=== PATIENT | male | born 1990 | race African-American/Black ===

== ENCOUNTER 2018-03-30 08:41 | Emergency (ER) | payer SELFPAY ==
[~2018-03-30] VITALS: Ht 180.3 cm; Wt 79.5 kg
[2018-03-30 08:45] VITALS: Ht 180.3 cm; Wt 79.5 kg
[2018-03-30 09:56] VITALS: BP 130/64
== END 2018-03-30 09:54 | disposition home or self-care (01) ==
LOC: D.ER 08:41
DX: S01.312A Laceration without foreign body of left ear, initial encounter (principal); Y04.2XXA Assault by strike against or bumped into by another person, initial encounter; Y93.89 Activity, other specified; Y92.019 Unspecified place in single-family (private) house as the place of occurrence of the external cause; F17.200 Nicotine dependence, unspecified, uncomplicated